=== PATIENT | female | born 1995 | race Caucasian/White ===

== ENCOUNTER 2017-01-09 14:02 | Emergency (ER) | payer OTHER ==
[~2017-01-09] VITALS: Ht 157.5 cm; Wt 59.9 kg
[2017-01-09 14:12] VITALS: TEMP 36.6; Ht 157.5 cm; Wt 59.9 kg
[2017-01-09] MEDS ORDERED: IBUP-103 PO (15:15)
[2017-01-09] MEDS ORDERED: POLY335019 PO (15:15)
[2017-01-09] MEDS ORDERED: FIBE1CHW PO (15:15)
[2017-01-09] MEDS ORDERED: MULT-506 PO (15:15)
[2017-01-09] MEDS ORDERED: PRVHFAIN INH (15:15)
--- NOTE | 2017-01-09 15:28 | DIAGNOSTIC IMAGING REPORT ---
R KNEE 3 VIEWS CLINICAL HISTORY: Medial right knee pain following injury. COMPARISON: None FINDINGS: Alignment of the right knee is anatomic. No acute fracture is identified. There may be a trace right knee joint effusion. Joint spaces are preserved. Patellar tracking is normal. IMPRESSION: 1. No acute fracture. 2. Trace right knee joint effusion. Electronically signed by: Michele Scanlon M.D. 01/09/2017 3:26 PM Dictated Date/Time: 01/09/2017 3:26 PM
--- NOTE | 2017-01-09 15:42 | EMERGENCY ROOM VISIT NOTE ---
ED Visit Note First contact with patient: 14:23 CHIEF COMPLAINT: Right knee injury yesterday HISTORY OF PRESENT ILLNESS: Patient is a 21-year-old white female who presents to department for evaluation of medial right knee pain after an injury last evening. 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 She describes a twisting mechanism to the knee, with a valgus stress. She was able to continue to skate for short time, then came off the ice and iced the knee down. The knee pain progressively worsened throughout the evening. She difficulty sleeping due to the discomfort. She continued to ice, and took ibuprofen for discomfort. She complains of pain in the medial aspect of the knee. It is worse when she extends fully or if she tries to bear weight. She also notes increased pain when the knee rotates or twists slightly. She does note that the swelling has gone down and it is not as painful now that had been overnight. She denies any prior history of injuries to this knee. REVIEW OF SYSTEMS: Review of systems as per HPI. All other systems reviewed were negative. At least 6 systems reviewed. PMH: Electronic medical records are reviewed and summarized as above/below. See Problem List. SOCIAL HISTORY: Patient is a college in from [place] who lives in the dorm. Nonsmoker. PHYSICAL EXAM: Vital Signs: Reviewed Nurse's notes. MENTAL STATUS: Patient is a pleasant, well-appearing 21-year-old white female who is awake and alert and in no acute distress. KNEE: Examination of the right knee no mild soft tissue swelling. No significant knee joint effusion is palpable. She has tenderness along the MCL distribution, primarily on the femoral side. No significant medial joint line discomfort. No pain over the quadriceps tendon, the patella or the patellar ligament. No pain over the medial retinaculum. No patellar instability or crepitus noted. She can extend fully, flexes fully, has pain with full extension. She has slight discomfort, laxity and apprehension with valgus stress, at 0 and 30. Adele's and anterior drawer with bilateral endpoint. Patient ambulates with an antalgic gait. Skin is normal and intact. The right lower extremity is neurovascularly intact. EMERGENCY DEPARTMENT COURSE: The patient was seen and examined as above. Electronic medical records are reviewed and summarized as above/below. See Problem List. were reviewed. X-rays of the right knee were obtained, no acute bony abnormality was noted. The patient's exam and mechanism appears more consistent with an MCL injury. Anterior cruciate ligament appears to be intact , I do not suspect meniscal pathology. Patient was wrapped with an lorin wrap, placed in a knee immobilizer and issued crutches. She was referred to orthopedics for further care and evaluation. She declined narcotic analgesia. Medication reconciliation: I attest that I have personally reviewed the patient' s current medication list. Blood pressure screening : Patient was found to have normal blood pressure on screening and does not require follow-up. R KNEE 3 VIEWS CLINICAL HISTORY: Medial right knee pain following injury. COMPARISON: None FINDINGS: Alignment of the right knee is anatomic. No acute fracture is identified. There may be a trace right knee joint effusion. Joint spaces are preserved. Patellar tracking is normal. IMPRESSION: 1. No acute fracture. 2. Trace right knee joint effusion. 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 (3) Influenza A Status: Resolved Current/Historical Medications Scheduled Control Pills ( Control Pills), 1 TAB PO DAILY Fiber (Fiber Select Gummies), 2 TABS PO BID Multivitamin (Multivitamin), 1 TAB PO DAILY Polyethylene Glycol 3350 (Miralax), 17 GM PO BID Scheduled PRN Albuterol (Ventolin Hfa), 2 PUFFS INH UD PRN for Exercise Induced Asthma Ibuprofen Tab (Advil), 800 MG PO Q8 PRN for Pain Allergies Coded Allergies: No Known Allergies (Unverified , 03/08/16) Vital Signs Date Time Temp Pulse Resp B/P (MAP) Pulse Ox O2 Delivery O2 Flow Rate FiO2 01/09/17 15:54 65 105/72 98 01/09/17 14:12 36.6 75 20 111/76 99 Room Air Departure Information Impression Primary Impression: Right knee injury Referrals No Doctor, Assigned (PCP) Omar Gaming M.D. Patient Instructions My [facility] Additional Instructions Ibuprofen(Motrin, Advil) may be used for fever or pain. Use 600mg every six hours as needed. Take with food. Avoid using more than 2400mg in a 24 hour period. Do not use 2400mg per day for more than three consecutive days without physician direction. Prolonged inappropriate use can lead to stomach upset or ulcers. This medication can be taken if you need to drive, work, or perform activities which may be dangerous when taking narcotic pain medication. (AND/OR) Acetaminophen(Tylenol) may be used for fever or pain. Use 1000mg every six hours as needed. Avoid using more than 3000mg in a 24 hour period. This medication can be taken if you need to drive, work, or perform activities which may be dangerous when taking narcotic pain medication. Ice compresses for 20 minutes at a time four times daily for 2-3 days. Use the knee immobilizer and crutches as instructed. Rest and elevate your injury. Continue current medications. Return to the ER immediately for any numbness, tingling, severe pain, extreme swelling in the extremity or as needed. Call [facility] tomorrow to arrange follow up for your injury.
[2017-01-09 15:54] VITALS: BP 105/72; PULSE 65; O2SAT 98
[2017-01-09] MEDS ORDERED: BCPILLS PO (19:45)
== END 2017-01-09 15:56 | disposition home or self-care (01) ==
LOC: C.EDB 14:03 → C.EDD 15:56
DX: S89.91XA Unspecified injury of right lower leg, initial encounter (principal); M25.561 Pain in right knee; W18.39XA Other fall on same level, initial encounter; Y93.21 Activity, ice skating; Y92.330 Ice skating rink (indoor) (outdoor) as the place of occurrence of the external cause